=== PATIENT | female | born 2000 | race African-American/Black ===

== ENCOUNTER 2020-06-07 15:15 | Emergency (ER) | payer MEDICAID ==
[~2020-06-07] VITALS: Ht 165.1 cm; Wt 54.0 kg
[2020-06-07] MEDS ORDERED: CEFTRIAXONE SODIUM 250 MG/VIAL IM ONE (16:00)
[2020-06-07] MEDS ORDERED: AZITHROMYCIN 500 MG TABLET PO ONE (16:00)
[2020-06-07] MEDS ORDERED: LIDOCAINE HCL 1% 20ML VIAL (Pyxis) INJ INFIL ONE (16:00)
[2020-06-07 17:00] VITALS: BP 138/67
[2020-06-07 17:05] LABS: CLARITY URINE CLEAR (CLEAR); COLOR URINE YELLOW (YELLOW); KETONES URINE NEGATIVE (NEGATIVE); LEUKOCYTE ESTERASE URINE 2+ (NEGATIVE); NITRITE URINE NEGATIVE (NEGATIVE); OCCULT BLOOD URINE NEGATIVE (NEGATIVE); PH URINE 7.5 (4.5-8.0); PROTEIN URINE NEGATIVE (NEGATIVE); SPECIFIC GRAVITY URINE 1.014 (1.005-1.030)
[2020-06-11 19:10] LABS: NEISSERIA GONORRHOEAE NAA Negative (Negative)
== END 2020-06-07 18:25 | disposition home or self-care (01) ==
LOC: ER 15:15
DX: N34.2 Other urethritis (principal); R30.0 Dysuria
CPT/HCPCS: 81003; 81025; 87491; 87591; 96372; 99283; J0696; J3490

== ENCOUNTER 2021-02-04 21:29 | Emergency (ER) | payer MEDICAID ==
[~2021-02-04] VITALS: Ht 165.1 cm; Wt 58.0 kg
[2021-02-04 21:40] VITALS: BP 124/79
[2021-02-04] MEDS ORDERED: TOPUD MT (22:22)
== END 2021-02-04 23:43 | disposition home or self-care (01) ==
LOC: ER 21:29
DX: Z04.89 Encounter for examination and observation for other specified reasons (principal); Z72.51 High risk heterosexual behavior
CPT/HCPCS: 81025; 99283

== ENCOUNTER 2021-04-16 14:33 | Emergency (ER) | payer MEDICAID ==
[~2021-04-16] VITALS: Ht 165.1 cm; Wt 58.0 kg
[~2021-04-16 14:33] MED LIST: TOPUD MT
[2021-04-16 14:37] VITALS: BP 166/88
[2021-04-16] MEDS ORDERED: PREDNISONE 20MG TABLET PO ONE (15:30)
[2021-04-16] MEDS ORDERED: DIPHENHYDRAMINE 25MG CAPSULE PO ONE (15:30)
[2021-04-16] MEDS ORDERED: DIPH25CA83 MT (15:40)
[2021-04-16] MEDS ORDERED: P20 MT (15:40)
== END 2021-04-16 15:51 | disposition home or self-care (01) ==
LOC: ER 14:33
DX: R21 Rash and other nonspecific skin eruption (principal)
CPT/HCPCS: 99283; J7512; Q0163

== ENCOUNTER 2022-02-21 21:25 | Emergency (ER) | payer MEDICAID ==
[~2022-02-21] VITALS: Ht 165.1 cm; Wt 58.3 kg
[~2022-02-21 21:25] MED LIST changes: +DIPH25CA83 MT; +P20 MT
[2022-02-21 21:31] VITALS: BP 115/60
[2022-02-22 02:42] LABS: CLARITY URINE CLEAR (CLEAR); COLOR URINE YELLOW (YELLOW); KETONES URINE NEGATIVE (NEGATIVE); LEUKOCYTE ESTERASE URINE 3+ (NEGATIVE); NITRITE URINE NEGATIVE (NEGATIVE); OCCULT BLOOD URINE NEGATIVE (NEGATIVE); PROTEIN URINE NEGATIVE (NEGATIVE); SPECIFIC GRAVITY URINE 1.015 (1.005-1.030); UROBILINOGEN URINE 0.2 E.U./dL (0.2-1.0)
[2022-02-22] MEDS ORDERED: FLUCONAZOLE 100MG TABLET PO ONE (02:45)
[2022-02-22] MEDS ORDERED: DIF15 MT (02:51)
[2022-02-22] MEDS ORDERED: FLUCONAZOLE 150MG TABLET PO NR (03:15)
[2022-02-25 06:07] LABS: NEISSERIA GONORRHOEAE NAA Positive (Negative)
== END 2022-02-22 03:22 | disposition home or self-care (01) ==
LOC: ER 21:25
DX: L29.9 Pruritus, unspecified (principal)
CPT/HCPCS: 81003; 81025; 87491; 87591; 99283